=== PATIENT | male | born 1950 | race Caucasian/White ===

== ENCOUNTER 2019-09-14 08:31 | Outpatient (CLI) | payer OTHER | END 2019-09-14 08:43 | disposition home or self-care (01) | LOC: LAB 08:31 | DX: G60.8 Other hereditary and idiopathic neuropathies (principal) ==

== ENCOUNTER 2020-01-17 07:06 | Day surgery (SDC) | payer OTHER ==
[~2020-01-17 07:06] MED LIST: ATORVASTATIN CA10 MG PO; CYMBALTA20 MG PO; JANUMET 50-5001 EACH PO
== END 2020-01-17 16:20 | disposition home or self-care (01) ==
LOC: CIR.AMB 07:06
DX: L72.0 Epidermal cyst (principal)

== ENCOUNTER 2023-10-03 08:47 | Emergency (ER) | payer OTHER ==
[~2023-10-03] VITALS: Ht 188 cm; Wt 84.4 kg
[2023-10-03] MEDS ORDERED: GLIMEPIRIDE1 MG (09:11)
== END 2023-10-03 14:48 | disposition home or self-care (01) ==
LOC: ER 08:47
DX: K59.00 Constipation, unspecified (principal)